=== PATIENT | male | born 1990 | race Caucasian/White ===

== ENCOUNTER 2022-12-15 00:13 | Emergency (ER) | payer SELFPAY ==
[~2022-12-15] VITALS: Ht 172.7 cm; Wt 95.0 kg
[2022-12-15 00:32] VITALS: BP 142/72; PULSE 93; TEMP 97.9; O2SAT 98
== END 2022-12-15 08:47 | disposition left against medical advice (07) ==
LOC: ER 01:13
DX: M79.604 Pain in right leg (principal)
CPT/HCPCS: 73502; 99283